=== PATIENT | female | born 1950 | race Caucasian/White ===

== ENCOUNTER 2017-06-17 19:28 | Emergency (ER) | payer OTHER, MEDICARE ==
[~2017-06-17] VITALS: Ht 157.5 cm; Wt 88.0 kg
[~2017-06-17 19:28] MED LIST: CALC500C16 CHEW; CHOL100025 CHEW; HYDR-3583 PO; IMIT50TA PO; MULTTAB67 PO; NAPR220C22 PO; PANT20 PO
[2017-06-17 19:51] VITALS: BP 145/85; PULSE 93; RESP 18; TEMP 98.5; O2SAT 96
[2017-06-17 20:11] VITALS: BP 145/85; PULSE 93; RESP 18; TEMP 98.5; O2SAT 96
--- NOTE | 2017-06-17 20:27 | PD ---
HPI Chief Complaint: Pain: Acute or Chronic Time Seen by Provider: 20:22 Travel History International Travel<30 days: No Contact w/Intl Traveler<30days: No Traveled to known affect area: No History of Present Illness HPI 67-year-old female presents to the emergency department by private transportation the care of her spouse for evaluation of right upper quadrant and right flank pain. Patient states symptoms of present since 6 PM. Patient rates her pain 8/10 intensity. Patient reports pain intermittently "grabs her" as a sharp pain. Patient has no associated symptoms of pleuritic pain or chest pain or shortness of breath and no nausea or vomiting. Patient denies dysuria frequency urgency or hematuria. No prior history of kidney stones. Patient is status post remote cholecystectomy. Patient does not report any chest pain or shortness of breath. Patient denies pleuritic pain or hemoptysis. Patient did have left shoulder surgery for rotator cuff injury March 20; has had no issues with physical therapy and no upper or lower extremity pain or edema. Patient did take a one-time dose of hydrocodone for her flank pain without symptomatic relief. Patient is also had previous herniorrhaphy. Patient denies any personal history of hypertension dyslipidemia tobaccoism or diabetes. Patient takes medication for reflux esophagitis. Patient denies history of pancreatitis. Patient has had colonoscopy and upper endoscopy as recently denies 2015 without any acute findings due to evaluation of anemia. No history of gastritis peptic ulcer disease colitis diverticulosis or diverticulitis. Patient states periodically pain is exacerbated by movement or twisting; that's when it "grabs her". Patient has had no skin rash. Patient reports she had a similar episode approximately 10 days ago that lasted longer but was less intense. PFSH Past Medical History Narrative Medical Reflux esophagitis, umbilical herniorrhaphy cholecystectomy rotator cuff surgery ; no tobacco use no alcohol use; nursing notes. Diminished Hearing: No Immunizations Current: No Tetanus Vaccination: > 5 Years Influenza Vaccination: Yes ?: Not LMP: menopause Menopausal: Yes Past Surgical History Abdominal Surgery: Yes (hernia) Cholecystectomy: Yes Social History Alcohol Use: No Tobacco Use: No Substance Use: No Allergies-Medications (Allergen,Severity, Reaction): Coded Allergies: No Known Allergies (Unverified Adverse Reaction, Unknown, 06/17/17) Reported Meds & Prescriptions Reported Meds & Active Scripts Active Narrative Medication hydrocodone as needed Review of Systems Except as stated in HPI: all other systems reviewed are Neg General / Constitutional: No: Fever, Chills HENT: No: Congestion Cardiovascular: No: Chest Pain or Discomfort, Diaphoresis Respiratory: No: Cough, Shortness of Breath, Wheezing, Orthopnea, Hemoptysis, Pleuritic Pain Gastrointestinal: Positive: Abdominal Pain, No: Nausea, Vomiting, Diarrhea Genitourinary: Positive: Flank Pain, No: Urgency, Frequency, Dysuria, Hematuria , Pelvic Pain Musculoskeletal: No: Myalgias, Arthralgias Skin: No Rash Neurologic: No: Weakness Psychiatric: No: Anxiety Endocrine: No: Heat Intolerance, Cold Intolerance Hematologic/Lymphatic: No: Easy Bruising Physical Exam Narrative GENERAL: Well-developed well-nourished female in no acute distress no respiratory distress SKIN: Warm and dry. No rash, no vesicular rash. HEAD: Normocephalic. EYES: No scleral icterus. No injection or drainage. NECK: Supple, trachea midline. No JVD or lymphadenopathy. CARDIOVASCULAR: Regular rate and rhythm without murmurs, gallops, or rubs. RESPIRATORY: Breath sounds equal bilaterally. No accessory muscle use. GASTROINTESTINAL: Abdomen soft, mild right upper quadrant and epigastric tenderness to palpation without guarding or rebound, nondistended. MUSCULOSKELETAL: No cyanosis, or edema. BACK: Nontender without obvious deformity. Right-sided CVA tenderness. Data Data Last Documented VS Vital Signs Date Time Temp Pulse Resp B/P (MAP) Pulse Ox O2 Delivery O2 Flow Rate FiO2 06/17/17 22:29 85 17 156/83 (107) 97 Nasal Cannula 06/17/17 20:[address] Abd/Pel W/O Iv Contrast (06/17/17 19:36) Urinalysis - C+S If Indicated (06/17/17 19:36) Ketorolac Inj (Toradol Inj) (06/17/17 21:00) D-Dimer (06/17/17 22:13) Basic Metabolic Panel (Bmp) (06/17/17 22:13) Ed Discharge Order (06/17/17 23:03) Labs Laboratory Tests Test 06/17/17 20:57 06/17/17 22:20 Urine Color YELLOW Urine Turbidity CLEAR Urine pH 5.5 Urine Specific [place] 1.030 Urine Protein NEG mg/dL Urine Glucose (UA) NEG mg/dL Urine Ketones NEG mg/dL Urine Occult Blood NEG Urine Nitrite NEG Urine Bilirubin NEG Urine Leukocyte Esterase NEG Urine RBC 0-3 /hpf Urine WBC 3-5 /hpf Urine Squamous Epithelial Cells 6-8 /hpf Urine Uric Acid Crystals MANY /hpf Urine Bacteria NONE /hpf Microscopic Urinalysis Comment CULT NOT INDICATED D-Dimer Quantitative (PE/DVT) 0.51 MG/L FEU Blood Urea Nitrogen 20 MG/DL Creatinine 0.61 MG/DL Random Glucose 97 MG/DL Calcium Level 8.2 MG/DL Sodium Level 138 MEQ/L Potassium Level 3.8 MEQ/L Chloride Level 106 MEQ/L Carbon Dioxide Level 24.3 MEQ/L Anion Gap 8 MEQ/L Estimat Glomerular Filtration Rate 98 ML/MIN [facility] Medical Decision Making Medical Screen Exam Complete: Yes Emergency Medical Condition: Yes Medical Record Reviewed: Yes Interpretation(s) Urinalysis: Uric acid crystals Last Impressions Abdomen/Pelvis CT 06/17/171935 Signed Impressions: Service Date/Time: June 20:45 - CONCLUSION: 1. Midline ventral abdominal wall hernia containing only fat. 2. Large hiatal hernia containing the gastric fundus. 3. Uncomplicated colonic diverticulosis. 4. 2.7 and 0.9 cm low-density lesions within the left lobe of the liver which are indeterminate on this unenhanced examination. Outpatient MRI of the abdomen with contrast may be helpful for further evaluation if clinically indicated. Bakari Montero MD Vital Signs Date Time Temp Pulse Resp B/P (MAP) Pulse Ox O2 Delivery O2 Flow Rate FiO2 06/17/17 20:11 98.5 93 18 145/85 (105) 96 06/17/17 19:51 98.5 93 18 145/85 (105) 96 CBC & BMP Diagram 06/17/17 22:20 Calcium Level 8.2 L d-dimer: 0.51 Differential Diagnosis Musculoskeletal pain, shingles, renal colic, choledocholithiasis, pancreatitis, gastritis, peptic ulcer disease also to consider although less likely PE, esophageal spasm, ACS Narrative Course Patient rates pain 8/10 intensity; has recently taking hydrocodone will give Toradol [address] kidney stone protocol and urinalysis pending Urinalysis shows uric acid crystals CT abdomen and pelvis kidney stone protocol reveals no obstructive uropathy hydronephrosis and hydroureter or kidney stones also identifies no intra- abdominal or pelvic obstruction free air or free fluid; patient has ventral hernia containing fat and hiatal hernia as well as evidence of previous cholecystectomy and low density lesion of the liver recommend outpatient imaging /[place] Patient informed of lab results and imaging results reports that pain had completely resolved after Toradol but is now starting to return; patient states that she notes causing her pain d-dimer and BMP are pending Basic metabolic panel is within normal range d-dimer is within lab error of normal at 0.51. Patient with spouse at bedside informed of lab results; patient and spouse does not report the patient had same pain 4 years ago with extensive workup didn't ever identified source and patient states he was in the same location same intensity and same associated intermittent grabbing type pain. Patient states that she has 0/10 pain at this time. Patient does not want to pursue further imaging at this time. Diagnosis Primary Impression: Right flank pain Additional Impression: Liver lesion Referrals: Primary Care Physician 1 day Patient Instructions: General Instructions Additional Instructions: Continue current medications as presently prescribed Follow-up with your primary care provider; call office in a.m. to schedule follow-up appointment and for follow-up of CT finding of liver lesion Take ibuprofen/Advil/Motrin 800 mg as often as every 8 hours or may take 600 mg as often as every 6 hours; do not take Aleve if taking ibuprofen Return to the emergency for free concerns or change in condition Disposition: 01 DISCHARGE HOME Condition: Stable Lisa Bustamante MD Jun 17, 2017 20:27
[2017-06-17] MEDS ORDERED: KETOROLAC TROMETHAMINE 30 MG/ML (IVP) VIAL IV PUSH ONE (21:00)
[2017-06-17 21:03] LABS: BLOOD, URINE NEG (NEG); GLUCOSE,URINE NEG (NEG); KETONE, URINE NEG (NEG); NITRITE,URINE NEG (NEG); PH, URINE 5.5 (5.0-8.5)
[2017-06-17 21:09] LABS: URINE COLOR YELLOW (YELLW/STRAW)
[2017-06-17 21:10] LABS: RBC, URINE 0-3 /hpf (0-3)
[2017-06-17 21:11] LABS: URIC ACID CRYSTALS, URINE MANY /hpf
[2017-06-17 21:12] LABS: COMMENT (UR) CULT NOT INDICATED; CULTURE IF INDICATED CULT NOT INDICATED
--- NOTE | 2017-06-17 21:12 | RADRPT ---
EXAM DATE/TIME: 06/17/2017 20:45 [facility] COMPARISON: No previous studies available for comparison. INDICATIONS : Right upper quadrant and right flank pain. ORAL CONTRAST: No oral contrast ingested. RADIATION DOSE: 23.85 CTDIvol (mGy) MEDICAL HISTORY : None SURGICAL HISTORY : Cholecystectomy. ENCOUNTER: Initial ACUITY: 1 day PAIN SCALE: 8/10 LOCATION: Right upper quadrant TECHNIQUE: Volumetric scanning of the abdomen and pelvis was performed. Using automated exposure control and ad justment of the mA and/or kV according to patient size, radiation dose was kept as low as reasonably achievable to obtain optimal diagnostic quality images. DICOM format image data is available electro nically for review and comparison. FINDINGS: LOWER LUNGS: The visualized lower lungs are clear. There is a large hiatal hernia containing the gastric fundus. LIVER: There are low-density lesions within the left lobe of the liver measuring 2.7 cm and 0.9 cm which are indeterminate on this unenhanced examination. No biliary ductal dilatation is noted. The patient is status post cholecystectomy. SPLEEN: Normal size without lesion. PANCREAS: Within normal limits. KIDNEYS: Normal in size and shape. There is no mass, stone, or hydronephrosis. ADRENAL GLANDS: Within normal limits. VASCULAR: There is no aortic aneurysm. BOWEL/MESENTERY: Uncomplicated colonic diverticulosis is noted. No acute diverticulitis is noted. The appendix is norm al. ABDOMINAL WALL: There is a midline ventral abdominal wall hernia containing only fat. RETROPERITONEUM: There is no lymphadenopathy. BLADDER: No wall thickening or mass. REPRODUCTIVE: Within normal limits. INGUINAL: There is no lymphadenopathy or hernia. MUSCULOSKELETAL: Within normal limits for patient age. CONCLUSION: 1. Midline ventral abdominal wall hernia containing only fat. 2. Large hiatal hernia containing the gastric fundus. 3. Uncomplicated colonic diverticulosis. 4. 2.7 and 0.9 cm low-density lesions within the left lobe of the liver which are indeterminate on th is unenhanced examination. Outpatient MRI of the abdomen with contrast may be helpful for further galdino luation if clinically indicated. Bakari Montero MD on June 17, 2017 at 21:03 Board Certified Radiologist. This report was verified electronically.
[2017-06-17 21:15] VITALS: BP 160/80; PULSE 88; RESP 18; O2SAT 98
[2017-06-17 22:29] VITALS: BP 156/83; PULSE 85; RESP 17; O2SAT 97
[2017-06-17 22:39] LABS: POTASSIUM 3.8 MEQ/L (3.5-5.1)
[2017-06-17 22:42] LABS: BICARBONATE 24.3 MEQ/L (21.0-32.0)
[2017-06-17 23:16] VITALS: BP 142/88; TEMP 98.7
== END 2017-06-17 23:17 | disposition home or self-care (01) ==
LOC: PHED 19:28
DX: R10.11 Right upper quadrant pain (principal); K76.9 Liver disease, unspecified; K44.9 Diaphragmatic hernia without obstruction or gangrene; K43.9 Ventral hernia without obstruction or gangrene; K57.30 Diverticulosis of large intestine without perforation or abscess without bleeding
CPT/HCPCS: 74176; 80048; 81001; 85379; 96374; 99285; J1885

== ENCOUNTER 2017-10-30 13:00 | Emergency (ER) | payer OTHER, MEDICARE ==
[~2017-10-30] VITALS: Ht 157.5 cm; Wt 85.0 kg
[2017-10-30 13:00] VITALS: BP 157/90; PULSE 71; RESP 16; TEMP 97.8; O2SAT 99
[~2017-10-30 13:00] MED LIST changes: -CALC500C16 CHEW; -CHOL100025 CHEW; -HYDR-3583 PO; -IMIT50TA PO; -MULTTAB67 PO; -NAPR220C22 PO; -PANT20 PO; +PANT40TA3 PO
[2017-10-30] MEDS ORDERED: FERR325T18 PO (13:49)
[2017-10-30] MEDS ORDERED: SODIUM CHLORIDE 0.9% FLUSH 10 ML FLUSH IV FLUSH PRN (14:15)
[2017-10-30] MEDS ORDERED: DICYCLOMINE HCL 20 MG/2 ML VIAL IM ONE (14:15)
[2017-10-30] MEDS ORDERED: KETOROLAC TROMETHAMINE 30 MG/ML (IVP) VIAL IVP ONE (14:15)
--- NOTE | 2017-10-30 14:21 | PD ---
HPI Chief Complaint: GI Complaint Time Seen by Provider: 14:09 Travel History International Travel<30 days: No Contact w/Intl Traveler<30days: No Traveled to known affect area: No History of Present Illness HPI Patient presents with complaints of right upper quadrant abdominal pain since this morning. Described as dull and constant that is aggravated with movement, states that occasionally it will grab her. History of cholecystectomy and 2 abdominal hernia repairs. Reports several similar episodes in the past that have been worked up with negative findings. All episodes have exact same symptoms. Last for 1-2 days. Currently denies any urinary or bowel symptoms. Denies any nausea or vomiting. Pain is 3 out of 10 but when it grabs her it is severe. PFSH Past Medical History Cancer: No Cardiovascular Problems: No Diminished Hearing: No Endocrine: No Gastrointestinal Disorders: Yes Genitourinary: No Immune Disorder: No Musculoskeletal: No Neurologic: No Psychiatric: No Reproductive: No Respiratory: No Immunizations Current: No Ulcer: Yes Influenza Vaccination: Yes ?: Not Menopausal: Yes Dilation and Curettage (D&C): Yes Past Surgical History Abdominal Surgery: Yes (GALLBLADDER,HERNIA REPAIR) Cholecystectomy: Yes Eye Surgery: Yes (CATARACTS) Gynecologic Surgery: Yes (D&C) Other Surgery: Yes Social History Alcohol Use: No Tobacco Use: No Substance Use: No Allergies-Medications (Allergen,Severity, Reaction): Coded Allergies: No Known Allergies (Verified Adverse Reaction, Unknown, 10/30/17) Reported Meds & Prescriptions Reported Meds & Active Scripts Active Reported Ferrous Sulfate 325 Mg (65 Mg Iron) Tablet 325 Mg PO DAILY Pantoprazole (Pantoprazole Sodium) 40 Mg Tab 40 Mg PO DAILY Review of Systems General / Constitutional: No: Fever Eyes: No: Visual changes HENT: No: Headaches Cardiovascular: No: Chest Pain or Discomfort Respiratory: No: Shortness of Breath Gastrointestinal: Positive: Abdominal Pain Genitourinary: No: Dysuria Musculoskeletal: No: Pain Skin: No Rash Neurologic: No: Weakness Psychiatric: No: Depression Endocrine: No: Polydipsia Hematologic/Lymphatic: No: Easy Bruising Physical Exam Narrative GENERAL: Well-nourished, well-developed patient. SKIN: Focused skin assessment warm/dry. HEAD: Normocephalic. EYES: No scleral icterus. No injection or drainage. NECK: Supple, trachea midline. No JVD or lymphadenopathy. CARDIOVASCULAR: Regular rate and rhythm without murmurs, gallops, or rubs. RESPIRATORY: Breath sounds equal bilaterally. No accessory muscle use. GASTROINTESTINAL: Abdomen soft, non-tender, nondistended. No hepatosplenomegaly Surgical scars noted MUSCULOSKELETAL: No cyanosis, or edema. BACK: Nontender without obvious deformity. No CVA tenderness. Data Data Last Documented VS Vital Signs Date Time Temp Pulse Resp B/P (MAP) Pulse Ox O2 Delivery O2 Flow Rate FiO2 10/30/17 15:32 16 10/30/17 15:31 71 172/92 (118) 97 Room Air 10/30/17 13:00 97.8 Orders Orders Complete Blood Count With Diff (10/30/17 14:14) Comprehensive Metabolic Panel (10/30/17 14:14) Lipase (10/30/17 14:14) Lactic Acid (10/30/17 14:14) Ct Abd/Pel W Iv Contrast(Rout) (10/30/17 14:14) Iv Access Insert/Monitor (10/30/17 14:14) Ecg Monitoring (10/30/17 14:14) Oximetry (10/30/17 14:14) Sodium Chloride 0.9% Flush (Ns Flush) (10/30/17 14:15) Dicyclomine Inj (Bentyl Inj) (10/30/17 14:15) Ketorolac Inj (Toradol Inj) (10/30/17 14:15) Iohexol 350 Inj (Omnipaque 350 Inj) (10/30/17 15:06) Labs Laboratory Tests Test 10/30/17 14:25 White Blood Count 6.2 TH/MM3 Red Blood Count 5.29 MIL/MM3 Hemoglobin 12.9 GM/DL Hematocrit 39.9 % Mean Corpuscular Volume 75.4 FL Mean Corpuscular Hemoglobin 24.5 PG Mean Corpuscular Hemoglobin Concent 32.5 % Red Cell Distribution Width 27.8 % Platelet Count 288 TH/MM3 Mean Platelet Volume 10.0 FL Neutrophils (%) (Auto) 66.6 % Lymphocytes (%) (Auto) 21.1 % Monocytes (%) (Auto) 7.8 % Eosinophils (%) (Auto) 2.5 % Basophils (%) (Auto) 2.0 % Neutrophils # (Auto) 4.1 TH/MM3 Lymphocytes # (Auto) 1.3 TH/MM3 Monocytes # (Auto) 0.5 TH/MM3 Eosinophils # (Auto) 0.2 TH/MM3 Basophils # (Auto) 0.1 TH/MM3 CBC Comment AUTO DIFF Differential Comment AUTO DIFF CONFIRMED Platelet Estimate NORMAL Platelet Morphology Comment NORMAL Ovalocytes 1+ Rouleau PRESENT Blood Urea Nitrogen 14 MG/DL Creatinine 0.53 MG/DL Random Glucose 87 MG/DL Total Protein 7.2 GM/DL Albumin 3.5 GM/DL Calcium Level 8.9 MG/DL Alkaline Phosphatase 96 U/L Aspartate Amino Transf (AST/SGOT) 16 U/L Alanine Aminotransferase (ALT/SGPT) 23 U/L Total Bilirubin 0.3 MG/DL Sodium Level 139 MEQ/L Potassium Level 3.9 MEQ/L Chloride Level 106 MEQ/L Carbon Dioxide Level 27.0 MEQ/L Anion Gap 6 MEQ/L Estimat Glomerular Filtration Rate 115 ML/MIN Lactic Acid Level 0.8 mmol/L Lipase 77 U/L [facility] Medical Decision Making Medical Screen Exam Complete: Yes Emergency Medical Condition: Yes Differential Diagnosis Abdominal adhesions, surgical scars, small bowel obstruction Narrative Course Pain has improved during her assessment. Assessment plan discussed with patient and at bedside. Diagnosis Primary Impression: Abdominal pain Qualified Codes: R10.84 - Generalized abdominal pain Patient Instructions: General Instructions Additional Instructions: Encouraged a bland high-fiber brat diet. Consider daily liquid fiber supplement. Follow-up with PCP. Return to the emergency room with any onset of new symptoms. Med/Other Pt SpecificInfo: Prescription(s) given Scripts Tramadol (Ultram) 50 Mg Tab 50 MG PO Q4H Y for PAIN, #15 TAB 0 Refills Prov: Jonathan Hall MD 10/30/17 Disposition: 01 DISCHARGE HOME Condition: Good Jonathan Hall MD Oct 30, 2017 14:20
[2017-10-30 14:38] VITALS: BP 188/102; PULSE 71; RESP 16; O2SAT 98
[2017-10-30 14:40] LABS: AUTOMATED NEUTROPHIL # 4.1 TH/MM3 (1.8-7.7); BASOPHIL # 0.1 TH/MM3 (0-0.2); EOSINOPHIL # 0.2 TH/MM3 (0-0.4); EOSINOPHIL % 2.5 % (0.0-4.0); HEMATOCRIT 39.9 % (35.0-46.0); HEMOGLOBIN 12.9 GM/DL (11.6-15.3); LYMPH % 21.1 % (9.0-44.0); LYMPHOCYTE # 1.3 TH/MM3 (1.0-4.8); MEAN CELL VOLUME 75.4 FL (80.0-100.0); MEAN CORPUSCULAR HEMOGLOBIN 24.5 PG (27.0-34.0); MEAN CORPUSCULAR HGB CONC 32.5 % (32.0-36.0); MONO % 7.8 % (0.0-8.0); MONOCYTE # 0.5 TH/MM3 (0-0.9); NEUT % 66.6 % (16.0-70.0); PLATELET COUNT 288 TH/MM3 (150-450); RED BLOOD COUNT 5.29 MIL/MM3 (4.00-5.30); RED CELL DISTRIBUTION WIDTH 27.8 % (11.6-17.2); WHITE BLOOD COUNT 6.2 TH/MM3 (4.0-11.0)
[2017-10-30 14:47] LABS: CHLORIDE 106 MEQ/L (98-107); SODIUM (NA) 139 MEQ/L (136-145)
[2017-10-30 14:48] VITALS: O2SAT 98
[2017-10-30 14:51] LABS: ALBUMIN 3.5 GM/DL (3.4-5.0); BLOOD UREA NITROGEN 14 MG/DL (7-18); CALCIUM 8.9 MG/DL (8.5-10.1); GLUCOSE,RANDOM 87 MG/DL (74-106)
[2017-10-30 14:54] LABS: ALT (GPT) 23 U/L (10-53); AST (GOT) 16 U/L (15-37); CREATININE 0.53 MG/DL (0.50-1.00); GLOMERULAR FILTRATION RATE 115 ML/MIN (>89)
[2017-10-30 14:56] LABS: TOTAL BILIRUBIN ADULT 0.3 MG/DL (0.2-1.0); TOTAL PROTEIN 7.2 GM/DL (6.4-8.2)
[2017-10-30 14:57] LABS: ALKALINE PHOSPHATASE 96 U/L (45-117)
[2017-10-30] MEDS ORDERED: IOHEXOL 350 MG/ML 10 ML VIAL (for RAD DIAG) IVCONTRAST ONE (15:06)
[2017-10-30 15:19] LABS: OVALOCYTES 1+ (NORMAL); ROULEAUX PRESENT (NORMAL)
[2017-10-30 15:31] VITALS: BP 172/92; PULSE 71; RESP 16; O2SAT 97
[2017-10-30 15:32] VITALS: RESP 16
--- NOTE | 2017-10-30 15:42 | RADRPT ---
EXAM DATE/TIME: 10/30/2017 14:53 [facility] COMPARISON: No previous studies available for comparison. INDICATIONS : Right sided abdominal pain ongoing. IV CONTRAST: 75 cc Omnipaque 350 (iohexol) IV ORAL CONTRAST: No oral contrast ingested. RADIATION DOSE: 17.65 CTDIvol (mGy) MEDICAL HISTORY : patient states liver lesion SURGICAL HISTORY : Cholecystectomy. Left rotator cuff ENCOUNTER: Initial ACUITY: 3 months PAIN SCALE: 6/10 LOCATION: Right upper and lower abdomen TECHNIQUE: Volumetric scanning of the abdomen and pelvis was performed. Using automated exposure control and ad justment of the mA and/or kV according to patient size, radiation dose was kept as low as reasonably achievable to obtain optimal diagnostic quality images. DICOM format image data is available electro nically for review and comparison. FINDINGS: LOWER LUNGS: The visualized lower lungs are clear. Moderate-sized hiatal hernia LIVER: Well-circumscribed 2.5 cm cyst along the inferior left hepatic lobe. Possible focal fatty infiltratio n or small cyst along the anterior margin of the left hepatic lobe. There is no dilation of the bili fatimah tree. Patient appears to be status post cholecystectomy. SPLEEN: Normal size without lesion. PANCREAS: Within normal limits. KIDNEYS: Normal in size and shape. There is no mass, stone or hydronephrosis. ADRENAL GLANDS: Within normal limits. VASCULAR: There is no aortic aneurysm. BOWEL/MESENTERY: The stomach, small bowel, and colon demonstrate no acute abnormality. There is no free intraperitone al air or fluid. Diverticular disease of the descending and sigmoid colon without diverticulitis ABDOMINAL WALL: Anterior abdominal wall hernia the level of the liver measures 5.2 cm in diameter and only contains f at. RETROPERITONEUM: There is no lymphadenopathy. BLADDER: No wall thickening or mass. REPRODUCTIVE: Small, 1.7 cm cyst in the left adnexal region is likely associated with the left ovary.. INGUINAL: There is no lymphadenopathy or hernia. MUSCULOSKELETAL: Within normal limits for patient age. CONCLUSION: 1. Diverticular disease of the descending and sigmoid colon without diverticulitis. Appendix is radio graphically normal. 2. Moderate size hiatal hernia. 3. Benign lesion in the left hepatic lobe probably represent small cysts. More anterior lesion could represent focal fatty infiltration. 4. 5.2 cm anterior abdominal wall hernia which only contains fat at the level of the liver midline. 5. Probable left ovarian cyst measuring 1.7 cm in diameter. Romeo D. Klioze, MD on October 30, 2017 at 15:34 Board Certified Radiologist. This report was verified electronically.
[2017-10-30] MEDS ORDERED: TRAM50 PO (16:10)
== END 2017-10-30 16:19 | disposition home or self-care (01) ==
LOC: PHED 13:00
DX: R10.11 Right upper quadrant pain (principal)
CPT/HCPCS: 74177; 80053; 83605; 83690; 85025; 96372; 96374; 99285; J0500; J1885; Q9967